=== PATIENT | female | born 1995 | race Caucasian/White ===

== ENCOUNTER → 2019-08-28 | Emergency (ER) | payer MEDICAID, OTHER ==
[~2019-08-28] VITALS: Ht 172.7 cm; Wt 54.8 kg
[2019-08-28 19:28] LABS: Basophils # (auto) 0 10 ^3/uL (0-0.2); Basophils % (auto) 0.7 % (0.0-2.0); Eosinophils # (auto) 0.1 10 ^3/uL (0-0.8); Eosinophils % (auto) 1.6 % (0.0-7.0); Hematocrit 38.4 % (36.0-46.0); Hemoglobin 12.9 g/dL (12.2-16.2); Lymphocytes # (auto) 1.1 10 ^3/uL (0.4-5.4); Lymphocytes % (auto) 17.7 % (10.0-50.0); Mean Corpuscular Hemoglobin 29.8 pg (28.0-32.0); Mean Corpuscular Hgb Conc. 33.6 g/dL (32.0-36.0); Mean Corpuscular Volume 88.8 fL (80.0-100.0); Monocytes # (auto) 0.5 10 ^3/uL (0-1.3); Monocytes % (auto) 7.5 % (0.0-12.0); Neutrophils # (auto) 4.7 10 ^3/uL (1.6-8.6); Neutrophils % (auto) 72.5 % (37.0-80.0); Nucleated Red Blood Cells % 0.1 %; Platelet Count (auto) 189 10^3/uL (140-450); Red Blood Cells 4.33 10^6/uL (4.0-5.20); Red Cell Distribution Width 15.3 % (11.8-14.3); White Blood Cell 6.4 10^3/uL (4.4-10.8)
[2019-08-28 19:42] LABS: Albumin 3.4 g/dL (3.4-5.0); BUN/Creatinine Ratio 9.6; Calcium 6.7 mg/dL (8.5-10.1)
[2019-08-28 19:45] LABS: Bilirubin, Total 0.2 mg/dL (0.2-1.0); Total Protein 7.5 g/dL (6.4-8.2)
[2019-08-28 21:00] VITALS: BP 126/82
== END | disposition home or self-care (01) ==
LOC: EDBD 17:34 → ER 17:34
DX: R51 Headache (principal)
CPT/HCPCS: 36415; 70450; 80053; 84443; 84702; 85025

== ENCOUNTER 2023-02-04 08:49 | Inpatient (IN) | payer MEDICAID ==
[~2023-02-04] VITALS: Ht 165.1 cm; Wt 115.2 kg
[2023-02-04 11:22] LABS: Chloride 104 mmol/L (98-107); Potassium 3.9 mmol/L (3.5-5.1); Sodium 139 mmol/L (136-145)
[2023-02-04 11:23] LABS: Anion Gap 9.1 (5-15); Calcium 8.8 mg/dL (8.5-10.1); Carbon Dioxide 25.9 mmol/L (20-30)
[2023-02-04 11:28] LABS: BUN/Creatinine Ratio 11.3 (10.0-20.0); Blood Urea Nitrogen 8 mg/dL (9-23); Glucose 92 mg/dL (74-106)
[2023-02-04 11:40] LABS: Basophils # (auto) 0.1 10 ^3/uL (0-0.2); Basophils % (auto) 0.8 % (0.0-2.0); Eosinophils # (auto) 0.3 10 ^3/uL (0-0.8); Eosinophils % (auto) 2.7 % (0.0-7.0); Hematocrit 40.3 % (36.0-46.0); Hemoglobin 13.2 g/dL (12.2-16.2); Lymphocytes # (auto) 1.9 10 ^3/uL (0.4-5.4); Lymphocytes % (auto) 19.2 % (10.0-50.0); Mean Corpuscular Hemoglobin 27.7 pg (28.0-32.0); Mean Corpuscular Hgb Conc. 32.6 g/dL (32.0-36.0); Mean Corpuscular Volume 85.1 fL (80.0-100.0); Monocytes # (auto) 0.5 10 ^3/uL (0-1.3); Monocytes % (auto) 5.5 % (0.0-12.0); Neutrophils % (auto) 71.8 % (37.0-80.0); Nucleated Red Blood Cells % 0.1 %; Red Blood Cells 4.74 10^6/uL (4.0-5.20); Red Cell Distribution Width 16.2 % (11.8-14.3); White Blood Cell 9.7 10^3/uL (4.4-10.8)
[2023-02-04 11:44] LABS: INR 1.07 (0.9-1.15); Prothrombin Time 11.2 sec (9.3-11.8)
[2023-02-04 12:43] LABS: Urine Bacteria FEW /hpf (None Seen); Urine Blood Negative /uL (Negative); Urine Clarity Clear (Clear); Urine Color Colorless (Yellow); Urine Protein, UAD Negative (Negative); Urine Specific Gravity 1.005 (1.001-1.035); Urine Urobilinogen Normal (Negative); Urine WBC 18 /hpf (0 - 5)
[2023-02-04] MEDS ORDERED: TEMAZEPAM 15 MG CAP PO PRN (13:00)
[2023-02-04] MEDS ORDERED: ONDANSETRON HCL 4 MG/2 ML VIAL IV PRN (13:00)
[2023-02-04] MEDS ORDERED: MORPHINE SULFATE INJ 2 MG/ml SYRG IV PRN (13:00)
[2023-02-04] MEDS ORDERED: DOCUSATE SOD 100 MG CAP PO PRN (13:00)
[2023-02-04 14:33] VITALS: PULSE 78; RESP 16; O2SAT 96
[2023-02-04] MEDS: SODIUM CHLORIDE 0.9% 1,000 ML IV SCH ×2 (14:46→22:28)
[2023-02-04] MEDS ORDERED: ATEN-60 PO (18:30)
[2023-02-04] MEDS ORDERED: CHOL50007 PO (18:30)
[2023-02-04] MEDS ORDERED: GABA-1250 PO (18:30)
[2023-02-04] MEDS ORDERED: ARIP2TAB PO (18:30)
[2023-02-04] MEDS ORDERED: CALC0.5C PO (18:30)
[2023-02-04] MEDS: GABAPENTIN 300 MG CAP PO SCH (21:57)
[2023-02-04] MEDS ORDERED: LORazepam 2MG/ML-1ML VIAL IV PRN (22:00)
[2023-02-04] MEDS ORDERED: LORazepam 0.5 MG TAB PO PRN (22:00)
[2023-02-04 22:18] VITALS: BP 117/74; PULSE 75; RESP 19; TEMP 98; O2SAT 96
[2023-02-04] MEDS ORDERED: ACETAMINOPHEN 325 MG TAB PO PRN (22:30)
[2023-02-04] MEDS ORDERED: cefTRIAXone 1GM/50ML D5W 50 ML IV ONE (23:30)
[2023-02-05] VITALS (7 sets, daily range): BP systolic 91–118; BP diastolic 58–68; PULSE 67–73; RESP 15–18; TEMP 97.4–98.6; O2SAT 93–100
[2023-02-05] MEDS: SODIUM CHLORIDE 0.9% 1,000 ML IV SCH ×3 (06:37→22:20)
[2023-02-05 06:45] LABS: Basophils # (auto) 0 10 ^3/uL (0-0.2); Basophils % (auto) 0.7 % (0.0-2.0); Eosinophils # (auto) 0.2 10 ^3/uL (0-0.8); Eosinophils % (auto) 3.6 % (0.0-7.0); Hematocrit 36.7 % (36.0-46.0); Hemoglobin 11.9 g/dL (12.2-16.2); Lymphocytes # (auto) 1.4 10 ^3/uL (0.4-5.4); Mean Corpuscular Hemoglobin 27.8 pg (28.0-32.0); Mean Corpuscular Hgb Conc. 32.4 g/dL (32.0-36.0); Mean Corpuscular Volume 85.8 fL (80.0-100.0); Monocytes # (auto) 0.4 10 ^3/uL (0-1.3); Monocytes % (auto) 6.8 % (0.0-12.0); Neutrophils # (auto) 4.4 10 ^3/uL (1.6-8.6); Neutrophils % (auto) 66.9 % (37.0-80.0); Red Blood Cells 4.28 10^6/uL (4.0-5.20); White Blood Cell 6.6 10^3/uL (4.4-10.8)
[2023-02-05 06:54] LABS: Albumin 4.1 g/dL (3.2-4.8); Alkaline Phosphatase 62 U/L (46-116); Anion Gap 8.4 (5-15); Aspartate Aminotransferase < 8 U/L (13-40); BUN/Creatinine Ratio 10.6 (10.0-20.0); Blood Urea Nitrogen 7 mg/dL (9-23); Calcium 7.8 mg/dL (8.7-10.4); Carbon Dioxide 24.6 mmol/L (20-30); Chloride 108 mmol/L (98-107); Glucose 97 mg/dL (74-106); Potassium 3.8 mmol/L (3.5-5.1); Sodium 141 mmol/L (136-145)
[2023-02-05 06:55] LABS: Bilirubin, Total 0.4 mg/dL (0.2-1.0); Total Protein 6.9 g/dL (5.7-8.2)
[2023-02-05 07:02] LABS: INR 1.04 (0.9-1.15); Partial Thromboplastin Time 33.8 SEC (24.5-34.5); Prothrombin Time 10.9 sec (9.3-11.8)
[2023-02-05 07:31] LABS: Alanine Aminotransferase 9 U/L (7-40)
[2023-02-05] MEDS: CALCITRIOL 0.25 MCG CAP PO SCH (10:00)
[2023-02-05] MEDS: CHOLECALCIFEROL (VITD3) 2,000 UNIT CAP/TAB PO SCH (10:00)
[2023-02-05] MEDS ORDERED: LIDOCAINE 2% (LOCAL ANESTH.) PF 5ml SDV ONE (10:27)
[2023-02-05] MEDS ORDERED: LIDOCAINE 2%HCL (LOCAL ANESTH.) INJ 10ml MDV ONE (13:45)
[2023-02-05] MEDS ORDERED: ACETAMINOPHEN 500 MG TAB PO PRN (15:15)
[2023-02-05] MEDS ORDERED: ACETAMINOPHEN 500 MG TAB PO ONE (15:15)
[2023-02-05] MEDS: ATENOLOL 25 MG TAB PO SCH (15:30)
[2023-02-05 17:26] LABS: Protein, CSF 28.2 mg/dL (15-45)
[2023-02-05 17:53] LABS: CSF White Blood Cells 1.7 CUMM (0-5); Description,CSF CLEAR
[2023-02-05] MEDS: cefTRIAXone 1GM/50ML D5W 50 ML IV SCH (21:17)
[2023-02-05] MEDS: GABAPENTIN 300 MG CAP PO SCH (21:24)
[2023-02-06] MEDS: SODIUM CHLORIDE 0.9% 1,000 ML IV SCH (02:30)
[2023-02-06 05:00] VITALS: BP 128/76; PULSE 72; RESP 18; TEMP 97.5; O2SAT 98
[2023-02-06 09:00] VITALS: BP 110/62; PULSE 80; RESP 19; TEMP 97.6; O2SAT 99
[2023-02-06] MEDS: ATENOLOL 25 MG TAB PO SCH (09:04)
[2023-02-06] MEDS: CALCITRIOL 0.25 MCG CAP PO SCH (09:04)
[2023-02-06] MEDS: CHOLECALCIFEROL (VITD3) 2,000 UNIT CAP/TAB PO SCH (09:04)
[2023-02-06 09:33] LABS: Basophils # (auto) 0 10 ^3/uL (0-0.2); Basophils % (auto) 0.5 % (0.0-2.0); Eosinophils # (auto) 0.3 10 ^3/uL (0-0.8); Hemoglobin 13.1 g/dL (12.2-16.2); Lymphocytes # (auto) 1.5 10 ^3/uL (0.4-5.4); Lymphocytes % (auto) 17.5 % (10.0-50.0); Mean Corpuscular Hemoglobin 28.1 pg (28.0-32.0); Mean Corpuscular Hgb Conc. 32.8 g/dL (32.0-36.0); Mean Corpuscular Volume 85.7 fL (80.0-100.0); Monocytes # (auto) 0.4 10 ^3/uL (0-1.3); Monocytes % (auto) 4.9 % (0.0-12.0); Neutrophils # (auto) 6.2 10 ^3/uL (1.6-8.6); Neutrophils % (auto) 73.1 % (37.0-80.0); Nucleated Red Blood Cells % 0.2 %; Red Blood Cells 4.66 10^6/uL (4.0-5.20); Red Cell Distribution Width 16.1 % (11.8-14.3); White Blood Cell 8.5 10^3/uL (4.4-10.8)
[2023-02-06 11:59] LABS: Chloride 108 mmol/L (98-107); Potassium 3.7 mmol/L (3.5-5.1); Sodium 142 mmol/L (136-145)
[2023-02-06 12:00] LABS: Anion Gap 10.4 (5-15); Carbon Dioxide 23.6 mmol/L (20-30)
[2023-02-06 12:05] LABS: BUN/Creatinine Ratio 10.8 (10.0-20.0); Blood Urea Nitrogen 7 mg/dL (9-23); Glucose 104 mg/dL (74-106)
[2023-02-06 16:53] VITALS: BP 102/57; PULSE 61; RESP 18; TEMP 98.2; O2SAT 93
[2023-02-06 20:00] VITALS: PULSE 71; O2SAT 98
[2023-02-06] MEDS: cefTRIAXone 1GM/50ML D5W 50 ML IV SCH (21:25)
[2023-02-06] MEDS: GABAPENTIN 300 MG CAP PO SCH (21:35)
[2023-02-06 22:00] VITALS: BP 106/62; PULSE 62; RESP 16; TEMP 98; O2SAT 96
[2023-02-07 05:00] VITALS: BP 116/71; PULSE 77; RESP 16; TEMP 97.8; O2SAT 95
[2023-02-07 08:00] VITALS: BP 108/66; PULSE 69; RESP 20; TEMP 98.4; O2SAT 99
[2023-02-07] MEDS: CALCITRIOL 0.25 MCG CAP PO SCH (09:39)
[2023-02-07] MEDS: ATENOLOL 25 MG TAB PO SCH (09:40)
[2023-02-07] MEDS: CHOLECALCIFEROL (VITD3) 2,000 UNIT CAP/TAB PO SCH (09:40)
[2023-02-07] MEDS ORDERED: acetaZOLAMIDE 250 MG TAB PO SCH (10:00)
[2023-02-07 13:00] VITALS: BP 117/74; PULSE 60; RESP 20; TEMP 98.5; O2SAT 96
[2023-02-07 16:46] VITALS: BP 131/81; PULSE 62; RESP 19; TEMP 98; O2SAT 92
[2023-02-07] MEDS ORDERED: ACET500C43 PO (17:51)
[2023-02-07 18:04] VITALS: BP 108/66; PULSE 69; TEMP 36.7
[2023-02-07] MEDS ORDERED: ACET250T20 PO (18:22)
== END 2023-02-07 18:50 | disposition home or self-care (01) | DRG 58 ==
LOC: ER 08:49 → OVERFLOW 13:03 → WEST WING 21:17
PROVIDERS: ADMIT Internal Medicine
PROC: 009U3ZX Drainage of Spinal Canal, Percutaneous Approach, Diagnostic (ICD-10-PCS; principal; 2023-02-05)
PROC: B01B1ZZ Fluoroscopy of Spinal Cord using Low Osmolar Contrast (ICD-10-PCS; 2023-02-05)
DX: G93.2 Benign intracranial hypertension (principal); D82.1 Di George's syndrome; E83.51 Hypocalcemia; N30.90 Cystitis, unspecified without hematuria; G40.909 Epilepsy, unspecified, not intractable, without status epilepticus; F41.9 Anxiety disorder, unspecified; E05.90 Thyrotoxicosis, unspecified without thyrotoxic crisis or storm; E03.9 Hypothyroidism, unspecified; E66.01 Morbid (severe) obesity due to excess calories; Z79.899 Other long term (current) drug therapy; Z68.41 Body mass index [BMI] 40.0-44.9, adult
CPT/HCPCS: 36415; 62272; 70450; 80048; 80053; 81001; 81025; 82945; 84157; 84443; 85025; 85610; 85730; 87070; 87086; 87205; 89051; 93005; G0378; J0696; J2001